=== PATIENT | male | born 1970 | race Caucasian/White ===

== ENCOUNTER → 2023-12-28 12:57 | Outpatient (REF) | payer BC, SELFPAY | LOC: RCS 12:57 | PROVIDERS: ATTENDING PHYSICIAN Nurse Practitioner; FAMILY PHYSICIAN Family Medicine | DX: I21.3 ST elevation (STEMI) myocardial infarction of unspecified site (principal); I25.10 Atherosclerotic heart disease of native coronary artery without angina pectoris; I25.5 Ischemic cardiomyopathy | CPT/HCPCS: 93306 ==

== ENCOUNTER → 2024-07-08 10:48 | Outpatient (REF) | payer BC, SELFPAY | LOC: RCS 10:48 | PROVIDERS: ATTENDING PHYSICIAN Nurse Practitioner; FAMILY PHYSICIAN Family Medicine | DX: I25.10 Atherosclerotic heart disease of native coronary artery without angina pectoris (principal); I42.0 Dilated cardiomyopathy; E78.00 Pure hypercholesterolemia, unspecified | CPT/HCPCS: 93306 ==